=== PATIENT | female | born 2000 | race Caucasian/White ===

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

== ENCOUNTER 2022-08-13 09:50 | Emergency (ER) | payer OTHER, SELFPAY ==
[2022-08-13 10:09] VITALS: BP 158/72; PULSE 91; RESP 16; TEMP 36.3; O2SAT 97; BMI 27.7
--- NOTE | 2022-08-13 10:12 | USR_ITS ---
PROCEDURE INFORMATION: Exam: US Abdomen, Limited; Right Upper Quadrant Exam date and time: 08/13/2022 10:33 AM Age: 22 years old Clinical indication: Abdominal pain; Other: Ruq pain TECHNIQUE: Imaging protocol: Real time ultrasound of the abdomen with image documentation. Limited exam focused on the right upper quadrant. COMPARISON: CT abdomen pelvis w con* [id number] 05/02/2019 9:25 PM FINDINGS: Liver: Normal. No masses. Gallbladder: Normal. No gallstones. There is no gallbladder wall thickening. Biliary ducts: Normal. No stones. No dilation. Pancreas: Visualized pancreas is unremarkable. Right kidney: Normal. No mass. No hydronephrosis. 5.5 cm x 13.3 cm x 4.2 cm US/US gall bladder [id number] IMPRESSION: No acute findings.
--- NOTE | 2022-08-13 10:17 | W.ED.ABDPA2 ---
HPI - Abdominal Pain General: Chief Complaint: Abdominal Pain Stated Complaint: abd pain, 13 weeks Time Seen by Provider: 08/13/22 10:08 Source: patient Mode of arrival: ambulatory History of Present Illness: 22-year-old female at 13 weeks gestation presents emergency room complaining of right upper quadrant abdominal pain that began yesterday and has persisted. Has not had any pelvic pain no vaginal discharge or bleeding. No dysuria urgency or frequency or flank pain. No fever sweats chills nausea vomiting or diarrhea she has not noticed anything that exacerbates or relieves it. No previous abdominal surgeries. MD elicited complaint: abdominal pain Pertinent past history: none Onset (ago): hour(s) Pain Consistency: intermittent Location: RUQ Severity: mild Quality: cramping Radiation: back Exacerbating factors: nothing Relieving factors: nothing Associated Symptoms: Reports GI cramping and poor appetite; Denies anorexia, belching, bloating, change in bowel habits, change in stool character, chills, coffee ground emesis, constipation, diarrhea, dyspepsia, dysuria, excessive flatus, fever(s), heartburn, hematochezia, hematuria, hematemesis, fecal incontinence, loose stools, melena, nausea, syncope and vomiting Review of Systems Const: Denies: fever(s), chills or fatigue ENMT: Denies: throat pain, ear or mastoid pain, nasal discharge or nasal congestion Card: Denies: syncope Resp: Denies: dyspnea, productive cough or non-productive cough GI: Reports: GI cramping; Denies: nausea, vomiting, hematemesis, coffee ground emesis, heartburn, diarrhea, constipation, bloating, belching, excessive flatus, fecal incontinence, change in bowel habits, change in stool character, hematochezia or melena : Denies: dysuria or hematuria Skin/Breast: Denies: rash or pruritus PFSH ED PFSH: Medical History Acute abdominal pain in right lower quadrant Social History Smoking and tobacco status: never smoked Alcohol intake: never Physical Exam Const: COMMON NORMALS: no acute distress GENERAL APPEARANCE: cooperative and comfortable ORIENTATION/CONSCIOUSNESS: Yes awake, Yes oriented to person, Yes oriented to place and Yes oriented to time HENMT: COMMON NORMALS: normocephalic, atraumatic and hearing grossly normal bilaterally HEAD & SCALP: normocephalic and atraumatic Lymph: LYMPHATIC: no lymphadenopathy noted and no lymphedema noted Resp: COMMON NORMALS: normal respiratory effort, No retractions, No use of accessory muscles and clear to auscultation bilaterally AUSCULTATION: clear to auscultation bilaterally Cardio: COMMON NORMALS: regular rate, regular rhythm and No murmurs present (Cardio) RATE: regular rate RHYTHM: regular rhythm GI: COMMON NORMALS: Soft to palpation and No hepatosplenomegaly present AUSCULTATION: Yes normoactive bowel sounds PALPATION: Yes Soft to palpation, No Tenderness to palpation present (GI), No Guarding due to palpation present (GI) and Yes No hepatosplenomegaly present Extremity: COMMON NORMALS: normal to inspection, capillary refill normal, no clubbing, cyanosis or edema, no calf tenderness and no pedal edema Neuro: SENSORIUM/ORIENTATION: Yes oriented to person, Yes oriented to place and Yes oriented to time Skin: COMMON NORMALS: no rashes or lesions noted GENERAL SKIN EXAM: no rashes or lesions noted Course Vital Signs: Vital signs: Vital Signs Temperature 97.3 F L 08/13/22 10:09 Pulse Rate 84 08/13/22 12:36 Respiratory Rate 16 08/13/22 10:09 Blood Pressure 142/71 08/13/22 12:36 Pulse Oximetry 99 08/13/22 11:08 MDM - Abdominal Pain Medical Decision Making Patient in some mild right upper quadrant abdominal discomfort is suggestive of biliary colic gallbladder ultrasound unremarkable laboratory tests unremarkable. There is no evidence on exam or by history of any other acute intra-abdominal pathology heart tones palpable and are normal send any vaginal bleeding or discharge no urinary symptoms. Suspect it is biliary colic is certainly not at the level that would require any intervention at this point recommend dietary avoidance to prevent overstimulation. Also started on Protonix. 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 Lab Data I reviewed the patient's lab results. 08/13/22 10:57 08/13/22 10:57 Labs/Radiology: Radiology Impressions Gallbladder Ultrasound 08/13/22 10:12 IMPRESSION: No acute findings. Laboratory Results WBC 8.5 10^3/uL (4.5-13.0) 08/13/22 10:57 RBC 4.04 10^6/uL (4.1-5.3) L 08/13/22 10:57 Hgb 12.1 g/dL (11.5-15.3) 08/13/22 10:57 Hct 36.3 % (37.0-47.0) L 08/13/22 10:57 MCV 89.9 fl (81-99) 08/13/22 10:57 MCH 30.0 pg (28.0-34.0) 08/13/22 10:57 MCHC 33.3 g/dL (30.0-36.0) 08/13/22 10:57 RDW 13.1 % (12.1-15.1) 08/13/22 10:57 Plt Count 254 10^3/cmm (130-400) 08/13/22 10:57 MPV 10.8 fL (7.4-10.4) H 08/13/22 10:57 Neut % (Auto) 77.2 % 08/13/22 10:57 Lymph % (Auto) 15.8 % 08/13/22 10:57 [place] % (Auto) 5.4 % 08/13/22 10:57 Eos % (Auto) 0.8 % 08/13/22 10:57 Baso % (Auto) 0.2 % 08/13/22 10:57 Neut # (Auto) 6.53 10^3/uL (1.8-8.0) 08/13/22 10:57 Lymph # (Auto) 1.3 10^3/uL (1.5-6.5) L 08/13/22 10:57 [place] # (Auto) 0.5 10^3/uL (0.2-0.9) 08/13/22 10:57 Eos # (Auto) 0.1 10^3/uL (0.0-0.8) 08/13/22 10:57 Baso # (Auto) 0.0 10^3/uL (0.0-0.1) 08/13/22 10:57 Nucleated RBC % (auto) 0 % 08/13/22 10:57 Nucleated RBCs # 0.0 /100WBC 08/13/22 10:57 Sodium 135 mmol/L (136-145) L 08/13/22 10:57 Potassium 3.7 mmol/L (3.5-5.1) 08/13/22 10:57 Chloride 103 mmol/L (98-107) 08/13/22 10:57 Carbon Dioxide 19 mmol/L (22-29) L 08/13/22 10:57 Anion Gap 16.7 (5-19) 08/13/22 10:57 BUN 7 mg/dL (6-20) 08/13/22 10:57 Creatinine 0.5 mg/dL (0.5-0.9) 08/13/22 10:57 GFR Calculation 157.3 mL/min (90-130) H 08/13/22 10:57 Glucose 90 mg/dL (65-115) 08/13/22 10:57 Calculated Osmolality 278 mOsm/kg (285-295) L 08/13/22 10:57 Calcium 9.2 mg/dL (8.5-10.5) 08/13/22 10:57 Total Bilirubin 0.2 mg/dL (0.15-1.2) 08/13/22 10:57 AST 16 U/L (0-32) 08/13/22 10:57 ALT 16 U/L (0-33) 08/13/22 10:57 Alkaline Phosphatase 41 U/L (35-105) 08/13/22 10:57 Total Protein 6.8 g/dL (6.6-8.7) 08/13/22 10:57 Albumin 4.1 g/dL (3.5-5.2) 08/13/22 10:57 Globulin 2.7 g/dL (1.3-4.6) 08/13/22 10:57 Lipase 25 U/L (13-60) 08/13/22 10:57 HCG, Qual Positive (Negative) H 08/13/22 10:57 Urine Color Yellow (Yellow) 08/13/22 12:02 Urine Appearance Hazy (CLEAR) A 08/13/22 12:02 Urine pH 5 (5-7) 08/13/22 12:02 Ur Specific [place] 1.025 (1.005-1.030) 08/13/22 12:02 Urine Protein Neg (Negative) 08/13/22 12:02 Urine Glucose (UA) Norm (Normal) 08/13/22 12:02 Urine Ketones Negative (Negative) 08/13/22 12:02 Urine Blood Neg (Negative) 08/13/22 12:02 Urine Nitrate Negative (Negative) 08/13/22 12:02 Urine Bilirubin Neg (Negative) 08/13/22 12:02 Urine Urobilinogen Norm mg/dL (Negative) 08/13/22 12:02 Ur Leukocyte Esterase Trace (Negative) H 08/13/22 12:02 Urine RBC None /hpf (0-2) 08/13/22 12:02 Urine WBC 0-4 /hpf (0-5) H 08/13/22 12:02 Ur Squamous Epith Cells 10-15 /hpf (0-5) H 08/13/22 12:02 Amorphous Sediment Not Reportable 08/13/22 12:02 Urine Bacteria 2+ /hpf (NONE) H 08/13/22 12:02 Urine Mucus 1+ /hpf 08/13/22 12:02 Discharge Plan Discharge Patient Disposition: Home Clinical Impression: Right upper quadrant abdominal pain, state, incidental Condition: Stable Prescriptions: New Protonix 40 mg tablet,delayed release (DR/EC) 40 mg PO DAILY Qty: 30 0RF No Action sertraline [Zoloft] 25 mg tablet 25 mg PO DAILY Discharge Orders: Discharge ED (Routine); Ordered 08/13/22 Ordered By: Luis Williamson Referrals: Ava Morrow MD [Primary Care Provider] - Patient Instructions: Abdominal Pain (ED), Opioid Safety, Pain Management Activity Restrictions/Additional Instructions: You were seen today for abdominal pain. Focus your pain by history was in the right upper quadrant suspicious for potential biliary colic ultrasound of the gallbladder and laboratory tests were unremarkable. This does not rule out biliary colic as a cause but does show that there is not an acute process requiring surgery at this time. Do recommend that you start Protonix daily and follow-up with your OB doctor as scheduled. Avoid fatty foods citrus foods tomato-based products fried foods and red meats limited dairy products as all of these can exacerbate gallbladder issues. Follow-up with your computer language coder or return to the ER if your symptoms worsen Coding Level of Care Code ED Pumping Supervisor for [place]
[2022-08-13 11:08] VITALS: BP 145/72; PULSE 82; O2SAT 99
[2022-08-13 11:32] LABS: HCG, Serum Qual Positive (Negative)
[2022-08-13 11:33] LABS: Basophils % 0.2 %; Eosinophils # 0.1 10^3/uL (0.0-0.8); Eosinophils % 0.8 %; Hematocrit 36.3 % (37.0-47.0); Hemoglobin 12.1 g/dL (11.5-15.3); Lymphocytes # 1.3 10^3/uL (1.5-6.5); Lymphocytes % 15.8 %; Mean Corpuscular HGB Conc 33.3 g/dL (30.0-36.0); Mean Corpuscular Volume 89.9 fl (81-99); Mean Platelet Volume 10.8 fL (7.4-10.4); Monocytes # 0.5 10^3/uL (0.2-0.9); Monocytes % 5.4 %; Neutrophils # 6.53 10^3/uL (1.8-8.0); Neutrophils % 77.2 %; Nucleated Red Blood Cells % 0 %; Platelet Count 254 10^3/cmm (130-400); Red Blood Count 4.04 10^6/uL (4.1-5.3); Red Cell Distribution Width 13.1 % (12.1-15.1); White Blood Count 8.5 10^3/uL (4.5-13.0)
[2022-08-13 11:41] LABS: Alanine Aminotransferase 16 U/L (0-33); Albumin Level 4.1 g/dL (3.5-5.2); Alkaline Phosphatase 41 U/L (35-105); Anion Gap 16.7 (5-19); Aspartate Amino Transferase 16 U/L (0-32); Blood Urea Nitrogen 7 mg/dL (6-20); Calcium 9.2 mg/dL (8.5-10.5); Carbon Dioxide 19 mmol/L (22-29); Chloride 103 mmol/L (98-107); Globulin 2.7 g/dL (1.3-4.6); Glomerular Filtration Rate 157.3 mL/min (90-130); Glucose 90 mg/dL (65-115); Lipase 25 U/L (13-60); Osmolality Calculated 278 mOsm/kg (285-295); Potassium 3.7 mmol/L (3.5-5.1); Sodium 135 mmol/L (136-145); Total Bilirubin 0.2 mg/dL (0.15-1.2); Total Protein 6.8 g/dL (6.6-8.7)
[2022-08-13 12:29] LABS: Add Urine Microscopic? YES; Bilirubin Urine Neg (Negative); Blood Urine Neg (Negative); Glucose Urine UA Norm (Normal); Ketones Urine Negative (Negative); Leukocyte Esterase Urine Trace (Negative); Nitrate Urine Negative (Negative); Protein Urine Neg (Negative); Specific Gravity, Urine 1.025 (1.005-1.030); Urine Appearance Hazy (CLEAR); Urine Color Yellow (Yellow); Urobilinogen Urine Norm (Negative); pH Urine 5 (5-7)
[2022-08-13 12:30] LABS: WBC Urine 0-4 /hpf (0-5)
[2022-08-13 12:31] LABS: Bacteria Urine 2+ /hpf; Mucus Urine 1+ /hpf
[2022-08-13 12:32] LABS: Add Urine Culture? No
[2022-08-13 12:36] VITALS: BP 142/71; PULSE 84
== END 2022-08-13 12:37 | disposition home or self-care (01) ==
PROVIDERS: Emergency Provider Family Medicine; PCP Family Medicine
DX: O26.891 Other specified pregnancy related conditions, first trimester (principal); R10.11 Right upper quadrant pain; Z3A.13 13 weeks gestation of pregnancy
CPT/HCPCS: 76705; 80053; 81001; 83690; 84703; 85025; 99283

== ENCOUNTER 2024-04-10 16:05 | Emergency (ER) | payer BC, SELFPAY ==
[2024-04-10 16:08] VITALS: BP 140/75; PULSE 80; RESP 15; TEMP 36.7; O2SAT 100; BMI 27.7
--- NOTE | 2024-04-10 16:18 | XRR_ITS ---
PROCEDURE INFORMATION: Exam: XR Chest Exam date and time: 04/10/2024 4:24 PM Age: 24 years old Clinical indication: Shortness of breath; Additional info: Palpitations/sob TECHNIQUE: Imaging protocol: Radiologic exam of the chest. Views: 1 view. COMPARISON: CT abdomen pelvis w con* [id number] 12/22/2020 10:41 AM FINDINGS: Lungs: Unremarkable. No consolidation. Pleural spaces: Unremarkable. No pleural effusion. No pneumothorax. Heart/Mediastinum: The heart appears prominent, though accentuated by portable technique. Bones/joints: Unremarkable. XR/XR chest 1V portable [id number] IMPRESSION: No acute cardiopulmonary findings.
--- NOTE | 2024-04-10 16:21 | ECG_ITS ---
[facility] Test Date: 2024-04-10 Pat Name: Stefanie Escalona Department: Room: Gender: Female Gas Main And Line Fitter: : 2000 Requested By: Rg Houser Order Number: [id number] Salas MD: Emil Kuhn M.D. Measurements Intervals [place] Rate: 70 P: 30 CT: 125 QRS: 27 QRSD: 102 T: 30 QT: 409 QTc: 443 Interpretive Statements SINUS RHYTHM WITH SINUS ARRHYTHMIA INCOMPLETE RIGHT BUNDLE BRANCH BLOCK [90+ ms QRS DURATION, TERMINAL R IN V1/V2, 40+ ms S IN I/aVL/V4/V5/V6] No previous ECG available for comparison Electronically Signed On 04-10-2024 23:37:44 CDT by Emil Kuhn M.D. [id number]
[2024-04-10 16:42] LABS: Basophils % 0.4 %; Eosinophils # 0.1 10^3/uL (0.0-0.8); Eosinophils % 1.3 %; Hematocrit 37.5 % (36-47); Lymphocytes # 1.3 10^3/uL (0.8-4.8); Lymphocytes % 11.7 %; Mean Corpuscular HGB Conc 33.1 g/dL (30-55); Mean Corpuscular Hemoglobin 29.2 pg (27-33); Mean Corpuscular Volume 88.2 fl (85-98); Mean Platelet Volume 10.6 fL (7.4-10.4); Monocytes # 0.4 10^3/uL (0.2-0.9); Monocytes % 3.7 %; Neutrophils # 9.09 10^3/uL (1.8-7.7); Neutrophils % 82.6 %; Nucleated Red Blood Cells % 0 %; Platelet Count 268 10^3/cmm (157-399); Red Blood Count 4.25 10^6/uL (3.85-5.65); Red Cell Distribution Width 13.6 % (12.1-15.1)
[2024-04-10 17:04] LABS: HCG, Serum Qual Negative (Negative)
--- NOTE | 2024-04-10 17:07 | W.ED.DIZZY ---
HPI - Dizziness General: Chief Complaint: Dizziness Stated Complaint: DIZZY Time Seen by Provider: 04/10/24 16:06 Source: patient and EMS Mode of arrival: EMS Limitations: no limitations History of Present Illness: HPI Narrative: Patient is a 24-year-old female presenting to the emergency department by ambulance for dizziness onset prior to arrival. She states a month ago symptoms began similar to this, that included palpitations, dizziness, shortness of breath, and lightheadedness of which she did call ambulance at that time. Upon EMS evaluation, they deemed that she had a panic attack and told her to stay at home and go to sleep. However at that time, patient states her heart rate was greater than 200. She had a few more episodes of this, and saw her primary care who put her on a Holter monitor for a week. She did not have any runs of the palpitations, however had other onset of symptoms such as the lightheadedness and nausea, she just turned in her monitor for evaluation with no results as of yet. She states today she had another episode of the palpitations along with her other symptoms, and at this time is still feeling short of breath and dizzy. She states she does have some chest pain when she has the symptoms. She was started on iron as well as vitamin B12 by primary care, does not take anything for anxiety or panic attacks. No pertinent past medical history of note. No other symptoms reported at this time. MD elicited complaint: dizziness and lightheadedness Onset (ago): minute(s) Timing: sudden onset Severity: similar to previous episodes History of similar symptoms: Yes Exacerbating factors: nothing Relieving factors: remaining still Associated symptoms: Reports chest pain, nausea and palpitations; Denies chills, headache(s) or vomiting Associated neuro symptoms: Deny numbness in extremities Related Data Previous Rx's Medication Instructions Recorded amoxicillin 875 mg-potassium 1 tab PO BID 10 days #20 tabs 12/28/23 clavulanate 125 mg tablet Allergies Allergy/AdvReac Type Severity Reaction Status Date / Time No Known Allergies Allergy Verified 04/10/24 16:21 Review of Systems General: Reports: 10 or more systems reviewed and unremarkable except in HPI and below Const: Denies: fever(s), chills or fatigue Eyes: Denies: change in vision ENMT: Denies: throat pain, ear or mastoid pain or nasal discharge Card: Reports: chest pain, palpitations and lightheadedness; Denies: swelling of feet/ankles Resp: Reports: dyspnea; Denies: productive cough or wheezing GI: Reports: nausea; Denies: abdominal pain, vomiting, diarrhea or constipation : Denies: flank pain, difficulty voiding, dysuria or urinary frequency Musc: Denies: neck pain, back pain or joint pain Skin/Breast: Denies: rash Neuro: Reports: dizziness; Denies: headache(s), numbness in extremities or weakness in extremities PFSH ED PFSH: Medical History Acute abdominal pain in right lower quadrant Social History Smoking and tobacco/nicotine status: never used tobacco/nicotine Alcohol intake: never Substance/Drug Use: never Physical Exam Const: COMMON NORMALS: patient oriented x3 and no limitations GENERAL APPEARANCE: cooperative and well developed ORIENTATION/CONSCIOUSNESS: Yes awake, Yes oriented to person, Yes oriented to place and Yes oriented to time OTHER: Anxious and tearful at time of examination HENMT: COMMON NORMALS: normocephalic, atraumatic and hearing grossly normal bilaterally HEAD & SCALP: normocephalic and atraumatic Eye: COMMON NORMALS: Equal, round and reactive pupils present, EOMs intact bilaterally and conjunctivae normal CONJUNCTIVA: Yes conjunctivae normal PUPIL: Yes Equal, round and reactive pupils present Neck/C-Spine: COMMON NORMALS: full ROM, supple and no JVD Resp: COMMON NORMALS: normal respiratory effort, No retractions, No use of accessory muscles and clear to auscultation bilaterally AUSCULTATION: clear to auscultation bilaterally Cardio: COMMON NORMALS: no JVD, regular rate, regular rhythm, No clicks present (Cardio), No murmurs present (Cardio) and No rub (Cardio) RATE: regular rate RHYTHM: regular rhythm GI: COMMON NORMALS: Normal to inspection, nondistended, normoactive bowel sounds present, Soft to palpation and non-tender AUSCULTATION: Yes normoactive bowel sounds PALPATION: Yes Soft to palpation RECTAL EXAM: deferred Extremity: COMMON NORMALS: normal to inspection, full ROM and capillary refill normal Neuro: COMMON NORMALS: patient oriented x3, CN's II-XII intact bilaterally, moves all extremities, no focal motor deficits and no sensory deficits noted SENSORIUM/ORIENTATION: Yes oriented to person, Yes oriented to place and Yes oriented to time Psych: COMMON NORMALS: mental status grossly normal and Normal thought process present THOUGHT PROCESS: Normal thought process present Skin: COMMON NORMALS: no rashes or lesions noted GENERAL SKIN EXAM: no rashes or lesions noted Course Vital Signs: Vital signs: Vital Signs Temperature 98.1 F 04/10/24 16:08 Pulse Rate 79 04/10/24 19:03 Respiratory Rate 18 04/10/24 19:03 Blood Pressure 114/67 04/10/24 19:03 Pulse Oximetry 100 04/10/24 19:03 Oxygen Delivery Me thod Room Air 04/10/24 18:47 MDM - Dizziness Medical Decision Making Patient arrived by ambulance for multiple symptoms prior to arrival, including shortness of breath, dizziness, and lightheadedness. Has been seen prior in the past, initially she called the ambulance for palpitations, she had called the ambulance a month ago for this and per EMS they were finding the patient to be with a heart rate of 200. She did not seek treatment at that time. However has had multiple follow-ups with primary care and was recently placed on Holter monitor. She had stated that her primary care refused to start her on any anxiety medications, though patient acknowledged that she thinks her symptoms are panic related. Her workup today in the emergency department was normal, including negative chest x-ray, negative EKG that was reviewed with physician, and negative blood work/UA. She was notably anxious and tearful on initial evaluation, and I sat down with patient and had a long discussion in regards to necessity for following up and addressing potential anxiety/depression. She is 3 year and this could also portray a depression. I did discuss with her reasons to return, however encouraged her to follow-up and will give 1 mg of Ativan through an IV that will hopefully help her start feeling more calm at home. She is instructed to follow-up tomorrow to discuss this. This case discussed with Dr. Adhikari. Lab Data 04/10/24 16:36 04/10/24 16:36 Radiology Impressions Chest X-Ray 04/10/24 16:18 IMPRESSION: No acute cardiopulmonary findings. Laboratory Results WBC 11.00 10^3/uL (3.29-11.43) 04/10/24 16:36 RBC 4.25 10^6/uL (3.85-5.65) 04/10/24 16:36 Hgb 12.40 g/dL (11.27-16.99) 04/10/24 16:36 Hct 37.5 % (36-47) 04/10/24 16:36 MCV 88.2 fl (85-98) 04/10/24 16:36 MCH 29.2 pg (27-33) 04/10/24 16:36 MCHC 33.1 g/dL (30-55) 04/10/24 16:36 RDW 13.6 % (12.1-15.1) 04/10/24 16:36 Plt Count 268 10^3/cmm (157-399) 04/10/24 16:36 MPV 10.6 fL (7.4-10.4) H 04/10/24 16:36 Neut % (Auto) 82.6 % 04/10/24 16:36 Lymph % (Auto) 11.7 % 04/10/24 16:36 [place] % (Auto) 3.7 % 04/10/24 16:36 Eos % (Auto) 1.3 % 04/10/24 16:36 Baso % (Auto) 0.4 % 04/10/24 16:36 Neut # (Auto) 9.09 10^3/uL (1.8-7.7) H 04/10/24 16:36 Lymph # (Auto) 1.3 10^3/uL (0.8-4.8) 04/10/24 16:36 [place] # (Auto) 0.4 10^3/uL (0.2-0.9) 04/10/24 16:36 Eos # (Auto) 0.1 10^3/uL (0.0-0.8) 04/10/24 16:36 Baso # (Auto) 0.0 10^3/uL (0.0-0.1) 04/10/24 16:36 Nucleated RBC % (auto) 0 % 04/10/24 16:36 Nucleated RBCs # 0.0 /100WBC 04/10/24 16:36 Sodium 138 mmol/L (136-145) 04/10/24 16:36 Potassium 3.9 mmol/L (3.5-5.1) 04/10/24 16:36 Chloride 105 mmol/L (98-107) 04/10/24 16:36 Carbon Dioxide 22 mmol/L (22-29) 04/10/24 16:36 Anion Gap 14.9 (5-19) 04/10/24 16:36 BUN 12 mg/dL (6-20) 04/10/24 16:36 Creatinine 0.6 mg/dL (0.5-0.9) 04/10/24 16:36 GFR Calculation 125.0 mL/min (90-130) 04/10/24 16:36 Glucose 93 mg/dL (65-115) 04/10/24 16:36 Calculated Osmolality 285 mOsm/kg (285-295) 04/10/24 16:36 Calcium 9.3 mg/dL (8.5-10.5) 04/10/24 16:36 Magnesium 1.9 mg/dL (1.7-2.3) 04/10/24 16:36 Total Bilirubin 0.2 mg/dL (0.15-1.2) 04/10/24 16:36 AST 18 U/L (0-32) 04/10/24 16:36 ALT 17 U/L (0-33) 04/10/24 16:36 Alkaline Phosphatase 45 U/L (35-105) 04/10/24 16:36 Total Protein 7.0 g/dL (6.6-8.7) 04/10/24 16:36 Albumin 4.7 g/dL (3.5-5.2) 04/10/24 16:36 Globulin 2.3 g/dL (1.3-4.6) 04/10/24 16:36 TSH 1.05 uIU/mL (0.27-4.20) 04/10/24 16:36 HCG, Qual Negative (Negative) 04/10/24 16:36 Urine Color Yellow (Yellow) 04/10/24 17:09 Urine Appearance Clear (CLEAR) 04/10/24 17:09 Urine pH 5.5 (5-7) 04/10/24 17:09 Ur Specific [place] 1.016 (1.005-1.030) 04/10/24 17:09 Urine Protein Negative (Negative) 04/10/24 17:09 Urine Glucose (UA) Negative (Normal) 04/10/24 17:09 Urine Ketones 2+ (Negative) H 04/10/24 17:09 Urine Blood Negative (Negative) 04/10/24 17:09 Urine Nitrate Negative (Negative) 04/10/24 17:09 Urine Bilirubin Negative (Negative) 04/10/24 17:09 Urine Urobilinogen 0.2 mg/dL (Negative) 04/10/24 17:09 Ur Leukocyte Esterase Trace (Negative) A 04/10/24 17:09 Urine RBC None /hpf (0-2) 04/10/24 17:09 Urine WBC 0-4 /hpf (0-5) H 04/10/24 17:09 Ur Squamous Epith Cells 0-4 /hpf (0-5) H 04/10/24 17:09 Amorphous Sediment Not Reportable 04/10/24 17:09 Urine Bacteria Trace /hpf (NONE) 04/10/24 17:09 Urine Mucus Trace /hpf 04/10/24 17:09 All radiology interpretation(s) finalized by discharge Discharge Plan Discharge Patient Disposition: Home Clinical Impression: Anxiety, Panic attack Condition: Stable Prescriptions: No Action amoxicillin-pot clavulanate 875-125 mg tablet 1 tab PO BID 10 Days Qty: 20 0RF Discharge Orders: Discharge ED (Routine); Ordered 04/10/24 Ordered By: Rg Cui Referrals: Ava Morrow MD [Primary Care Provider] - Discharge Diet: Usual diet Discharge Activity: Increase activity as tolerated Patient Instructions: Anxiety (ED), Panic Attack (ED) Activity Restrictions/Additional Instructions: Please follow-up with primary care tomorrow as discussed, to discuss ED visits and evaluation for any potential anxiety or depression. Return with any new or concerning symptoms you may have. 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
[2024-04-10 17:24] LABS: Alanine Aminotransferase 17 U/L (0-33); Albumin Level 4.7 g/dL (3.5-5.2); Alkaline Phosphatase 45 U/L (35-105); Aspartate Amino Transferase 18 U/L (0-32); Blood Urea Nitrogen 12 mg/dL (6-20); Calcium 9.3 mg/dL (8.5-10.5); Carbon Dioxide 22 mmol/L (22-29); Chloride 105 mmol/L (98-107); Creatinine Clr Calc Pharmacy 155.0638; Globulin 2.3 g/dL (1.3-4.6); Glucose 93 mg/dL (65-115); Magnesium 1.9 mg/dL (1.7-2.3); Osmolality Calculated 285 mOsm/kg (285-295); Sodium 138 mmol/L (136-145); Thyroid Stimulating Hormone 1.05 uIU/mL (0.27-4.20); Total Bilirubin 0.2 mg/dL (0.15-1.2)
[2024-04-10 17:33] VITALS: BP 117/66; PULSE 74; RESP 16; O2SAT 98
[2024-04-10 17:37] LABS: Bilirubin Urine Negative (Negative); Blood Urine Negative (Negative); Glucose Urine UA Negative (Normal); Ketones Urine 2+ (Negative); Leukocyte Esterase Urine Trace (Negative); Nitrate Urine Negative (Negative); Protein Urine Negative (Negative); Specific Gravity, Urine 1.016 (1.005-1.030); Urine Appearance Clear (CLEAR); Urine Color Yellow (Yellow); Urobilinogen Urine 0.2 mg/dL (Negative); pH Urine 5.5 (5-7)
[2024-04-10 17:39] LABS: Anion Gap 14.9 (5-19); Potassium 3.9 mmol/L (3.5-5.1)
[2024-04-10 18:00] VITALS: BP 121/54; PULSE 75; RESP 14; O2SAT 100
[2024-04-10 18:07] LABS: UA Manual Slide Review YES; UA Slide Review UA Slide Review Perf
[2024-04-10 18:10] LABS: Add Urine Culture? No; Add Urine Microscopic? YES; Bacteria Urine TRACE /hpf; Mucus Urine TRACE /hpf; Squamous Epithelial Cell Urine 0-4 /hpf (0-5); WBC Urine 0-4 /hpf (0-5)
[2024-04-10] MEDS: LORazepam 2 mg/mL INJ 1 mL 1 MG IVP (18:45)
[2024-04-10 18:47] VITALS: BP 121/67; PULSE 83; RESP 18; O2SAT 99
[2024-04-10 19:03] VITALS: BP 114/67; PULSE 79; RESP 18; O2SAT 100
== END 2024-04-10 19:02 | disposition home or self-care (01) ==
PROVIDERS: Emergency Provider Physician Assistant; PCP Family Medicine
DX: F41.9 Anxiety disorder, unspecified (principal); F41.0 Panic disorder [episodic paroxysmal anxiety]
CPT/HCPCS: 36415; 71045; 80053; 81001; 83735; 84443; 84703; 85025; 93005; 96374; 99285; J2060

== ENCOUNTER → 2024-05-04 15:54 | Outpatient (BNVA) | payer BC, SELFPAY | PROVIDERS: PCP Family Medicine; Visit Provider Emergency Medicine | DX: R00.2 Palpitations (principal) | CPT/HCPCS: 93005 ==